=== PATIENT | male | born 1990 | race Caucasian/White ===

== ENCOUNTER 2022-06-08 10:40 | Emergency (ER) | payer OTHER ==
[2022-06-08] MEDS ORDERED: PREDNISONE 20MG20 MG PO (11:27)
[2022-06-08] MEDS ORDERED: NORCO 5/3251 EACH PO (11:28)
== END 2022-06-08 11:53 | disposition home or self-care (01) ==
LOC: FER 10:40
DX: M54.16 Radiculopathy, lumbar region (principal); M41.9 Scoliosis, unspecified; Z28.310 Unvaccinated for COVID-19
CPT/HCPCS: 99283